=== PATIENT | female | born 1995 | race Caucasian/White ===

== ENCOUNTER → 2020-03-24 | Outpatient (CLI) | payer OTHER ==
[2020-03-24 12:49] LABS: BASO % 0.5 % (0.0-1.0); HEMATOCRIT 35.4 % (36.0-47.0); HEMOGLOBIN 11.9 g/dl (12.0-15.5); LYMPH # 1.2 10^3/uL (1.5-5.0); LYMPH % 29.2 % (24.0-44.0); MEAN CORPUSCULAR HGB CONC 33.6 g/dl (32.0-36.5); MEAN CORPUSCULAR VOLUME 95.2 fl (80.0-96.0); MONO # 0.3 10^3/uL (0.0-0.8); MONO % 7.9 % (0.0-5.0); NEUTROPHILS # 2.4 10^3/uL (1.5-8.5); NEUTROPHILS % 61.1 % (36.0-66.0); PLATELET COUNT, AUTOMATED 240 10^3/uL (150-450); RED BLOOD COUNT 3.72 10^6/uL (4.00-5.40); WHITE BLOOD COUNT 3.9 10^3/uL (4.0-10.0)
[2020-03-24 13:13] LABS: ALBUMIN 3.9 GM/DL (3.2-5.2); ALT/SGPT 17 U/L (12-78); BILIRUBIN,TOTAL 0.6 MG/DL (0.2-1.0); BLOOD UREA NITROGEN 6 MG/DL (7-18); CALCIUM LEVEL 9.1 MG/DL (8.5-10.1); CARBON DIOXIDE LEVEL 28 MEQ/L (21-32); CHLORIDE LEVEL 106 MEQ/L (98-107); CREATININE FOR GFR 0.74 MG/DL (0.55-1.30); GLOMERULAR FILTRATION RATE > 60.0 (>60); GLUCOSE, FASTING 95 MG/DL (70-100); POTASSIUM SERUM 3.9 MEQ/L (3.5-5.1); SODIUM LEVEL 139 MEQ/L (136-145); TOTAL PROTEIN 6.9 GM/DL (6.4-8.2)
[2020-03-24 13:14] LABS: TOTAL 25(OH) VITAMIN D 24.7 NG/ML (30.0-100.0)
[2020-03-25 18:11] LABS: TISSUE TRANSGLUTAMINASE IgA <2 U/mL (0-3); TISSUE TRANSGLUTAMINASE IgG 2 U/mL (0-5)
== END ==
LOC: M LAB 12:00
PROVIDERS: ATTEND Physician Assistant
DX: E55.9 Vitamin D deficiency, unspecified (principal); K58.2 Mixed irritable bowel syndrome

== ENCOUNTER 2020-05-16 09:40 | Outpatient (RCR) | payer OTHER | END 2020-05-20 | LOC: M PT 09:40 | PROVIDERS: ATTEND Otolaryngology | DX: M26.609 Unspecified temporomandibular joint disorder, unspecified side (principal) ==

== ENCOUNTER 2020-06-07 10:44 | Outpatient (RCR) | payer OTHER | END 2020-06-19 | LOC: M PT 10:44 | PROVIDERS: ATTEND Otolaryngology | DX: M26.629 Arthralgia of temporomandibular joint, unspecified side (principal) ==

== ENCOUNTER → 2020-06-13 | Outpatient (CLI) | payer OTHER ==
[2020-06-13 15:43] LABS: C REACTIVE PROTEIN QUANTITATIV < 0.30 MG/DL (0.00-0.30); FERRITIN 6 NG/ML (8-252); IRON (FE) 72 UG/DL (50-170); PERCENT SATURATION 19.1 % (13.2-45.0); TOTAL IRON BINDING CAPACITY 376 UG/DL (250-450)
== END ==
LOC: M LAB 14:16
PROVIDERS: ATTEND Nurse Practitioner Family
DX: R19.4 Change in bowel habit (principal); K62.5 Hemorrhage of anus and rectum; R10.12 Left upper quadrant pain; R11.0 Nausea

== ENCOUNTER 2020-07-07 10:38 | Outpatient (RCR) | payer OTHER | END 2020-07-20 | LOC: M ST 10:38 | PROVIDERS: ATTEND Otolaryngology | DX: Z51.89 Encounter for other specified aftercare (principal); M26.609 Unspecified temporomandibular joint disorder, unspecified side; R47.9 Unspecified speech disturbances ==

== ENCOUNTER → 2020-08-29 | Outpatient (CLI) | payer OTHER | END | disposition home or self-care (01) | LOC: M LAB 15:09 | PROVIDERS: ATTEND Physician Assistant | DX: R35.0 Frequency of micturition (principal); R19.7 Diarrhea, unspecified ==

== ENCOUNTER 2021-08-09 13:20 | Emergency (ER) | payer OTHER, SELFPAY ==
[~2021-08-09] VITALS: Ht 160 cm; Wt 55.0 kg
[~2021-08-09 13:20] MED LIST: KETO10TAB PO
[2021-08-09] MEDS ORDERED: ALBU8.5H (14:01)
[2021-08-09] MEDS ORDERED: PRENTAB9 PO (14:01)
[2021-08-09 14:50] LABS: BASO % 0.4 % (0.0-1.0); EOS % 0.1 % (0.0-3.0); HEMOGLOBIN 12.5 g/dl (12.0-15.5); LYMPH # 1.3 10^3/uL (1.5-5.0); LYMPH % 18.6 % (24.0-44.0); MEAN CORPUSCULAR HEMOGLOBIN 32.1 pg (27.0-33.0); MEAN CORPUSCULAR HGB CONC 33.8 g/dl (32.0-36.5); MEAN CORPUSCULAR VOLUME 95.1 fl (80.0-96.0); MONO # 0.5 10^3/uL (0.0-0.8); MONO % 6.6 % (2.0-8.0); PLATELET COUNT, AUTOMATED 254 10^3/uL (150-450); RED BLOOD COUNT 3.89 10^6/uL (4.00-5.40); WHITE BLOOD COUNT 6.8 10^3/uL (4.0-10.0)
[2021-08-09 15:31] LABS: BLOOD UREA NITROGEN 6 MG/DL (7-18); CALCIUM LEVEL 9.2 MG/DL (8.5-10.1); CARBON DIOXIDE LEVEL 26 MEQ/L (21-32); CHLORIDE LEVEL 107 MEQ/L (98-107); CREATININE FOR GFR 0.55 MG/DL (0.55-1.30); GLOMERULAR FILTRATION RATE > 60.0 (>60); GLUCOSE, FASTING 89 MG/DL (70-100); HCG, SERUM QUANTITATIVE 46039 MIU/ML; POTASSIUM SERUM 3.7 MEQ/L (3.5-5.1); SODIUM LEVEL 137 MEQ/L (136-145)
[2021-08-09] MEDS ORDERED: NS 1,000 ML IV ONE (20:35)
[2021-08-09] MEDS ORDERED: ONDANSETRON 4MG/2ML VIAL IV ONE (20:40)
[2021-08-09] MEDS ORDERED: ONDA4TAB6 PO (20:47)
[2021-08-09 22:37] VITALS: BP 101/56
== END 2021-08-09 22:39 | disposition home or self-care (01) ==
LOC: M ED 13:20
DX: O20.0 Threatened abortion (principal); O21.9 Vomiting of pregnancy, unspecified; O99.511 Diseases of the respiratory system complicating pregnancy, first trimester; J45.909 Unspecified asthma, uncomplicated; O99.611 Diseases of the digestive system complicating pregnancy, first trimester; K21.9 Gastro-esophageal reflux disease without esophagitis; Z91.018 Allergy to other foods; Z91.048 Other nonmedicinal substance allergy status; Z3A.01 Less than 8 weeks gestation of pregnancy
CPT/HCPCS: 76801; 80048; 81001; 84702; 85025; 86850; 86900; 86901; 87086; 93005; 96361; 96374; 99284; J2405

== ENCOUNTER → 2021-08-17 | Outpatient (REF) | payer OTHER ==
[~2021-08-17] MED LIST changes: +ALBU8.5H; +ONDA4TAB6 PO; +PRENTAB9 PO
== END ==
LOC: M LAB REF 14:51
PROVIDERS: ATTEND Physician Assistant
DX: N39.0 Urinary tract infection, site not specified (principal)

== ENCOUNTER → 2022-04-10 | Outpatient (CLI) | payer OTHER ==
[~2022-04-10] MED LIST changes: +METO1TAB32 PO
[2022-04-10 08:59] VITALS: BP 112/76
== END ==
LOC: M WHCPRO 07:35
PROVIDERS: ATTEND Surgery
DX: N63.11 Unspecified lump in the right breast, upper outer quadrant (principal)

== ENCOUNTER → 2022-04-15 | Outpatient (CLI) | payer OTHER ==
[~2022-04-15] MED LIST changes: -ALBU8.5H; +ALBU8.5H INH; +FAMO1TAB11 PO; +FLON1SPR; +MULT-40 PO; +OMEP-173 PO; +PROBCAP14 PO
== END ==
LOC: M LABSMTC 11:52
PROVIDERS: ATTEND Anesthesiology
DX: Z01.812 Encounter for preprocedural laboratory examination (principal); Z20.822 Contact with and (suspected) exposure to COVID-19
CPT/HCPCS: 87635; G0463

== ENCOUNTER → 2022-04-16 | Outpatient (CLI) | payer OTHER ==
[2022-04-16 16:58] LABS: BASO % 1.1 % (0.0-1.0); EOS # 0.1 10^3/uL (0.0-0.5); EOS % 1.3 % (0.0-3.0); HEMATOCRIT 36.8 % (36.0-47.0); HEMOGLOBIN 12.2 g/dl (12.0-15.5); LYMPH # 1.3 10^3/uL (1.5-5.0); LYMPH % 34.7 % (24.0-44.0); MEAN CORPUSCULAR HEMOGLOBIN 31.9 pg (27.0-33.0); MEAN CORPUSCULAR HGB CONC 33.2 g/dl (32.0-36.5); MEAN CORPUSCULAR VOLUME 96.1 fl (80.0-96.0); MONO # 0.3 10^3/uL (0.0-0.8); MONO % 6.7 % (2.0-8.0); NEUTROPHILS # 2.1 10^3/uL (1.5-8.5); NEUTROPHILS % 55.9 % (36.0-66.0); PLATELET COUNT, AUTOMATED 272 10^3/uL (150-450); RED BLOOD COUNT 3.83 10^6/uL (4.00-5.40); WHITE BLOOD COUNT 3.7 10^3/uL (4.0-10.0)
[2022-04-16 17:30] LABS: ALT/SGPT 18 U/L (12-78); BILIRUBIN,TOTAL 0.5 MG/DL (0.2-1.0); BLOOD UREA NITROGEN 5 MG/DL (7-18); CALCIUM LEVEL 9.4 MG/DL (8.5-10.1); CARBON DIOXIDE LEVEL 28 MEQ/L (21-32); CHLORIDE LEVEL 104 MEQ/L (98-107); CREATININE FOR GFR 0.75 MG/DL (0.55-1.30); GLOMERULAR FILTRATION RATE > 60.0 (>60); GLUCOSE, FASTING 90 MG/DL (70-100); POTASSIUM SERUM 4.3 MEQ/L (3.5-5.1); SODIUM LEVEL 136 MEQ/L (136-145); TOTAL PROTEIN 7.6 GM/DL (6.4-8.2)
== END ==
LOC: M WUC 12:52
PROVIDERS: ATTEND Physician Assistant
DX: Z01.818 Encounter for other preprocedural examination (principal)